=== PATIENT | female | born 1980 | race Caucasian/White ===

== ENCOUNTER 2023-12-06 13:45 | Outpatient (CLI) | payer BC | END 2023-12-06 13:46 | disposition home or self-care (01) | LOC: CSHWCC 13:45 | PROVIDERS: ATTEND Nurse Practitioner Family | DX: T21.24XD Burn of second degree of lower back, subsequent encounter (principal) | CPT/HCPCS: 11042; 99213; G0463 ==

== ENCOUNTER 2023-12-22 09:38 | Outpatient (CLI) | payer BC | END 2023-12-22 09:39 | disposition home or self-care (01) | LOC: CSHWCC 09:38 | PROVIDERS: ATTEND Nurse Practitioner Family | DX: T21.24XD Burn of second degree of lower back, subsequent encounter (principal) | CPT/HCPCS: 99213; G0463 ==